=== PATIENT | male | born 1990 | race Caucasian/White ===

== ENCOUNTER 2018-10-04 12:33 | Emergency (ER) | payer OTHER ==
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
[2018-10-04 14:49] LABS: PLATELET COUNT 203 10^3/uL (150-400)
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
[2018-10-04] MEDS ORDERED: IOPAMIDOL (ISOVUE-300) 100 ML BTL ONE (14:58)
[2018-10-04 15:50] VITALS: BP 118/71
--- NOTE | 2018-10-04 19:42 | CPEKG ---
Test Reason : OPEN Blood Pressure : / mmHG Vent. Rate : 049 BPM Atrial Rate : 049 BPM P-R Int : 143 ms QRS Dur : 094 ms QT Int : 479 ms P-R-T Axes : -32 090 054 degrees QTc Int : 433 ms Sinus bradycardia Borderline right axis deviation Confirmed by Sai Herrera ([id number]) on 10/04/2018 7:42:23 PM Referred By: Sai Herrera Confirmed By:Sai Herrera
== END 2018-10-04 15:59 | disposition home or self-care (01) ==
DX: J93.9 Pneumothorax, unspecified (principal); M25.531 Pain in right wrist; M25.532 Pain in left wrist; V18.0XXA Pedal cycle driver injured in noncollision transport accident in nontraffic accident, initial encounter; Y93.55 Activity, bike riding; Y92.480 Sidewalk as the place of occurrence of the external cause
CPT/HCPCS: 82435-PO; 82565-PO; 82947-PO; 84132-PO; 84295-PO; 84520-PO; 85014-ER; Q9967

== ENCOUNTER → 2018-10-26 | Outpatient (CLI) | payer OTHER | LOC: FIMAGING 17:30 | PROVIDERS: ATTEND Physician Assistant | DX: J93.9 Pneumothorax, unspecified (principal) ==